=== PATIENT | male | born 1965 | race Hispanic/Latino ===

== ENCOUNTER 2018-08-26 10:10 | Emergency (ER) | payer BC ==
[2018-08-26 10:33] VITALS: BMI 21.7
[2018-08-26 10:37] VITALS: O2SAT 99
[2018-08-26] MEDS ORDERED: Clindamycin 600mg/50ml D5W 600 MG/50 ML VIAL IVPB STA (11:24)
[2018-08-26] MEDS ORDERED: Iohexol 350 MG/100 ML VIAL ONE (11:28)
[2018-08-26 11:57] LABS: BASO # 0.04 K/mm3 (0.0-2.0); BASO % 0.3 % (0.0-3.0); EOS # 0.6 (0.0-0.7); EOS % 4.5 % (1.5-5.0); GRAN # 9.7 (1.4-6.5); GRAN % 72.4 % (50.0-68.0); HEMOGLOBIN 13.7 g/dL (14.0-18.0); LYMPH # 1.9 (1.2-3.4); MEAN CELL VOLUME 97.9 fl (80.0-105.0); MEAN CORPUSCULAR HEMOGLOBIN 32.4 pg (25.0-35.0); MEAN CORPUSCULAR HGB CONC 33.1 g/dl (31.0-37.0); MEAN PLATELET VOLUME 10.5 fl (7.0-11.0); MONO # 1.2 (0.1-0.6); MONO % 8.8 % (1.0-6.0); RBC 4.23 10^6/uL (3.5-6.1); RED CELL DISTRIBUTION WIDTH 13.2 % (11.5-14.5); WHITE BLOOD COUNT 13.4 10^3/uL (4.5-11.0)
--- NOTE | 2018-08-26 12:00 | ED PDOC ---
Arrival/HPI - General Chief Complaint: Dental Pain Time Seen by Provider: 08/26/18 10:40 Historian: Patient - History of Present Illness Narrative History of Present Illness (Text): 08/26/18 11:54 53 year old male with PMH of presents to the emergency department complaining of right sided dental pain and facial swelling. Patient had a dental procedure done 1 week ago on the right side, was given prophylactic azithromycin, which he completed. Patient began to have increased pain and mild swelling starting 3 days ago, was given another course of azithromycin which he is currently taking. Swelling and pain continued to worsen, prompting visit to emergency department. Taking tylenol with codeine for pain, last dose this am, 10:00. Denies fever, chills, N/V, difficulty breathing, difficulty swallowing, eye pain, abdominal p ain, redness, CP, SOB, or any other associated symptoms. Past Medical History - Provider Review Nursing Documentation Reviewed: Yes - Infectious Disease Hx of Infectious Diseases: None - Psychiatric Hx Psychophysiologic Disorder: No Hx Substance Use: No Family/Social History - Physician Review Nursing Documentation Reviewed: Yes Family/Social History: No Known Family HX Smoking Status: Current Some Days Smoker Hx Alcohol Use: No Hx Substance Use: No Allergies/Home Meds Allergies/Adverse Reactions: Allergies Penicillins Allergy (Intermediate, Verified 08/26/18 10:37) RASH Review of Systems - Review of Systems Constitutional: Normal. absent: Fevers Eyes: Normal. absent: Vision Changes ENT: Other (dental pain, neck and facial swelling). absent: Sore Throat, Sinus Congestion Respiratory: Normal. absent: SOB, Cough Cardiovascular: Normal. absent: Chest Pain, Palpitations, Syncope Gastrointestinal: Normal. absent: Abdominal Pain, Nausea, Vomiting, Appetite Changes Genitourinary Male: Normal. absent: Dysuria, Frequency Musculoskeletal: Normal. absent: Arthralgias, Back Pain, Neck Pain Skin: Normal. absent: Rash, Cellulitis Neurological: Normal. absent: Headache, Dizziness Endocrine: Normal Hemo/Lymphatic: Normal Psychiatric: Normal Physical Exam Vital Signs Reviewed: Yes Vital Signs Temp Pulse Resp BP Pulse Ox 08/26/18 10:33 98.8 F 83 18 181/80 H 99 Temperature: Afebrile Blood Pressure: Hypertensive Pulse: Regular Respiratory Rate: Normal Appearance: Positive for: Well-Appearing, Non-Toxic, Comfortable Pain Distress: None Mental Status: Positive for: Alert and Oriented X 3 - Systems Exam Head: Present: Atraumatic, Normocephalic Pupils: Present: PERRL Extroacular Muscles: Present: EOMI Conjunctiva: Present: Normal Ears: Present: Normal, NORMAL TM, Normal Canal Mouth: Present: Moist Mucous Membranes, Other (swelling to right lower gum and right side of floor of mouth (-) visible areas of fluctuance). No: Normal Teeth (no teeth present) Pharnyx: Present: Normal. No: ERYTHEMA, EXUDATE, TONSILS ENLARGED, Peritonsilar Swelling, Uvular Deviation, Muffled/Hoarse Voice, Strider, Soft Palate/Uvular Edema Nose (External): Present: Atraumatic Nose (Internal): Present: Normal Inspection Neck: Present: Normal Range of Motion, Lymphadenopathy (right submandibular tender and swollen), Other (swelling to right side under mandible). No: Meningeal Signs, Paraspinal Tenderness Respiratory/Chest: Present: Clear to Auscultation, Good Air Exchange. No: Respiratory Distress, Accessory Muscle Use Cardiovascular: Present: Regular Rate and Rhythm, Normal S1, S2, Peripheal Pulses Present Back: Present: Normal Inspection Upper Extremity: Present: Normal Inspection, Normal ROM, NORMAL PULSES, Neurovascularly Intact, Capillary Refill < 2s. No: Cyanosis, Edema Lower Extremity: Present: NORMAL PULSES Neurological: Present: GCS=15, CN II-XII Intact, Speech Normal, Motor Func Grossly Intact, Normal Sensory Function, Gait Normal, Memory Normal Skin: Present: Warm, Dry, Normal Color. No: Rashes Psychiatric: Present: Alert, Oriented x 3, Normal Insight, Normal Concentration, Normal Affect, Normal Mood Medical Decision Making ED Course and Treatment: Initial Plan: * CBC, CMP * Coags * CT Neck with IV contrast * Clindamycin Patient evaluated and examined at bedside by Dr. Salgado. Agrees with plan of care and disposition, ordered empiric Clindamycin IV. Labwork significant for mild leukocytosis. CT significant for dental abscess without soft tissue abscess or significant swelling. Patient afebrile with stable vital signs without airway swelling or difficulty swallowing/breathing. Dr. Salgado recommends discharge home with outpatient followup. Given prescription for Clindamycin and 6 pills of Tylenol with Codeine #3. Dental appointment made for 08/28/18. Diagnostic testing and plan of care discussed with patient. Strict instructions given regarding prescription use, importance of followup, and signs/symptoms to return to ER including fever, chills, headache, N/V, dizziness, or any other new/worsening symptoms. Patient verbalizes understanding of instructions and was given the opportunity to ask questions. Patient A&Ox3, ambulating with steady gait, with vital signs stable for discharge. - Lab Interpretations I have reviewed the lab results: Yes - RAD Interpretation Narrative RAD Interpretations (Text): 08/26/18 13:00 PROCEDURE: CT NECK WITH CONTRAST HISTORY: right sided neck swelling, dental pain COMPARISON: None available. TECHNIQUE: CT of the neck with intravenous contrast. Coronal and sagittal reformats generated. Intravenous contrast dose: 100 cc of Omni 350 Radiation dose: Total exam DLP = 578.35 mGy-cm. This CT exam was performed using one or more of the following dose reduction techniques: Automated exposure control, adjustment of the mA and/or kV according to patient size, and/or use of iterative reconstruction technique. FINDINGS: NASOPHARYNX: Unremarkable. SUPRAHYOID NECK: Unremarkable oropharynx, oral cavity, parapharyngeal space and retropharyngeal space. INFRAHYOID NECK: Unremarkable larynx, hypopharynx, and supraglottic space. Vocal cords intact. There is an 8 mm lytic lesion in the right side of the mandible consistent with a dental abscess. This is probably chronic. There are some dental implants in the mandible. The mandible is otherwise edentulous. MASS: None. GLANDS: Parotid and submandibular glands unremarkable. Normal size thyroid gland, without nodule. LYMPH NODES: Mildly enlarged cervical lymph nodes bilaterally. CERVICAL SPINE: No fracture or focal lesion. VASCULAR STRUCTURES: Unremarkable. OTHER FINDINGS: None. IMPRESSION: There is an 8 mm lytic lesion in the right side of the mandible consistent with a dental abscess. This is probably chronic. There are some dental implants in the mandible. The mandible is otherwise edentulous. No acute findings Radiology Orders: 08/26/18 11:18 NECK SOFT TISSUE W/CONTRAST [CT] Stat Multimedia Coordinator: Radiologist - Medication Orders Current Medication Orders: Clindamycin Phosphate (Cleocin) 600 mg in 50 mls @ 50 mls/hr IVPB STAT STA; Protocol Stop: 08/26/18 12:23 Last Admin: 08/26/18 11:40 Dose: 50 mls/hr eMAR Start Stop Document 08/26/18 11:40 SRE (Rec: 08/26/18 11:40 SRE [id number]) Intravenous Solution Start Date 08/26/18 Start Time 11:40 End Date 08/26/18 End time 12:40 Total Infusion Time 60 Disposition/Present on Arrival - Present on Arrival Any Indicators Present on Arrival: No History of DVT/PE: No History of Uncontrolled Diabetes: No Urinary Catheter: No History of Decub. Ulcer: No History Surgical Site Infection Following: None - Disposition Have Diagnosis and Disposition been Completed?: Yes Diagnosis: Dental abscess Disposition: HOME/ ROUTINE Disposition Time: 13:01 Patient Plan: Discharge Condition: STABLE Discharge Instructions (ExitCare): Tooth Abscess (DC), Dental Pain (DC) Additional Instructions: Take antibiotic every 8 hours for 7 days Continue pain medication as prescribed Followup with dentist within 2 days Followup with primary within 2 days Return to ER for any new/worsening symptoms Prescriptions: Acetaminophen with Codeine [Tylenol with Codeine #3 Tablet] 1 each PO Q6H PRN #6 tablet PRN Reason: Pain, Severe (8-10) Clindamycin [Cleocin] 450 mg PO Q8H #63 cap Referrals: [facility] [Outside] - Follow up with primary Lamar Humphrey MD [Medical Doctor] - Follow up with primary Forms: [facility] (Indonesian), WORK NOTE
[2018-08-26 12:04] LABS: ALB/GLOB RATIO 1.3 (1.1-1.8); ALBUMIN 4.3 g/dL (3.0-4.8); ALT/SGPT 31 U/L (7-56); AST/SGOT 24 U/L (17-59); BLOOD UREA NITROGEN 8 mg/dL (7-21); CALCIUM 9.7 mg/dL (8.4-10.5); GFR NON-AFRICAN AMERICAN > 60
[2018-08-26 12:06] LABS: INR 0.96; PARTIAL THROMBOPLASTIN TIME 29.9 Seconds (25.1-36.5)
--- NOTE | 2018-08-26 13:02 | CT ---
Date of service: 08/26/2018 PROCEDURE: CT NECK WITH CONTRAST HISTORY: right sided neck swelling, dental pain COMPARISON: None available. TECHNIQUE: CT of the neck with intravenous contrast. Coronal and sagittal reformats generated. Intravenous contrast dose: 100 cc of Omni 350 Radiation dose: Total exam DLP = 578.35 mGy-cm. This CT exam was performed using one or more of the following dose reduction techniques: Automated exposure control, adjustment of the mA and/or kV according to patient size, and/or use of iterative reconstruction technique. FINDINGS: NASOPHARYNX: Unremarkable. SUPRAHYOID NECK: Unremarkable oropharynx, oral cavity, parapharyngeal space and retropharyngeal space. INFRAHYOID NECK: Unremarkable larynx, hypopharynx, and supraglottic space. Vocal cords intact. There is an 8 mm lytic lesion in the right side of the mandible consistent with a dental abscess. This is probably chronic. There are some dental implants in the mandible. The mandible is otherwise edentulous. MASS: None. GLANDS: Parotid and submandibular glands unremarkable. Normal size thyroid gland, without nodule. LYMPH NODES: Mildly enlarged cervical lymph nodes bilaterally. CERVICAL SPINE: No fracture or focal lesion. VASCULAR STRUCTURES: Unremarkable. OTHER FINDINGS: None. IMPRESSION: There is an 8 mm lytic lesion in the right side of the mandible consistent with a dental abscess. This is probably chronic. There are some dental implants in the mandible. The mandible is otherwise edentulous. No acute findings
[2018-08-26 13:14] VITALS: BP 128/84; PULSE 80; RESP 20; TEMP 98.6
== END 2018-08-26 13:12 | disposition home or self-care (01) ==
LOC: ED 10:10
DX: K04.7 Periapical abscess without sinus (principal)
CPT/HCPCS: 70491; 80053; 85025; 85610; 85730; 96365; 99282; Q9967

== ENCOUNTER 2018-10-27 04:09 | Day surgery (SDC) | payer BC | END 2018-10-27 14:50 | disposition home or self-care (01) | LOC: ED 04:09 → NEURO 07:21 → 5RNO 09:26 → NEURO 14:50 ==